=== PATIENT | female | born 1995 | race Caucasian/White ===

== ENCOUNTER 2021-05-18 05:21 | Emergency (ER) | payer MEDICAID, SELFPAY ==
--- NOTE | 2021-05-18 | US_ITS ---
WS: [id number] ULTRASOUND PELVIS TECHNIQUE: Transabdominal only CLINICAL INFORMATION: PAIN LMP: ? : No. COMPARISON: None. FINDINGS: Uterus Orientation: Anteverted. Size: 7.8 cm x 5.0 cm x 2.7 cm Masses: None. Cervix: Normal . Endometrium: Normal. Endometrium thickness: 0.5 cm. Adnexa: Simple right ovarian cyst measuring 3.0 x 3.2 x 2.6 cm Right ovary size: 4.7 cm x 4.6 cm x 2.8 cm. Right ovary volume: 31.9 ccm3 Left ovary size: 2.2 cm x 1.6 cm x 1.6 cm. Left ovary volume: 3.0 ccm3 Free fluid: None. Other findings: None. US/US pelvic complete* [id number] IMPRESSION: 1. Simple right ovarian cyst measuring 3.0 x 3.2 x 2.6 cm 2. Pelvic ultrasound otherwise normal
[2021-05-18 05:32] VITALS: BP 128/87; PULSE 99; RESP 20; TEMP 36.8; O2SAT 98; BMI 26.7
--- NOTE | 2021-05-18 06:21 | US_ITS ---
WS: [id number] ULTRASOUND RENAL TECHNIQUE: Ultrasound examination of both kidneys. CLINICAL INFORMATION: pelvic pain/renal transplant - donor kidney in RLQ COMPARISON: None. FINDINGS: Right lower quadrant renal transplant. Transplant measures 11.4 x 6.3 x 6.4 cm Renal cortex 1.7 cm Normal peak systolic velocities in the right renal artery.Normal arterial waveforms. Right renal vein is patent. Normal segmental resistive indices. No hydronephrosis. Renal transplant slightly complex cyst in the lower pole measuring 2.0 x 1.5 x 1.6 cm US/CV renal transplant [id number] IMPRESSION: Normal right lower quadrant renal transplant
--- NOTE | 2021-05-18 06:22 | XR_ITS ---
WS: [id number] Portable AP upright chest, 05/18/2021 Clinical Data: dyspnea/cough Comparison: None. Findings: No nodules, masses or effusions are seen. The heart is normal. The pulmonary vascularity is not increased. No pneumonia or pneumothorax is seen. XR/XR chest 1V portable [id number] Impression: Negative chest.
--- NOTE | 2021-05-18 06:29 | W.ED.NAVMDI ---
Documented by User: Sree Peck DO 05/24/21 06:23 HPI - Nausea/Vomiting/Diarrhea General: Chief complaint: Nausea/Vomiting/Diarrhea Stated complaint: Fever\ N\V Kidney Transplant 2001\Cough Time Seen by Provider: 05/18/21 05:51 History of Present Illness: HPI Narrative: 25-year-old female presents to the emergency room with complaints of left lower quadrant abdominal pain and fever and dysuria. She has had nausea and vomiting as well. She has had a cough she states her baseline nonproductive cough that she has had for years. 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 She was to have this done at [place] recently moved to this area she has not been following with anyone here she is still on immune suppression. MD elicited complaint: nausea, vomiting and abdominal pain Onset (ago): minute(s) Description of vomiting: watery Associated nausea: Yes Associated abdominal pain: Yes Location of pain: RLQ Pain consistency: constant Severity: moderate Quality: cramping Exacerbating factors: other (Urination) Relieving factors: none Associated symtoms: Reports bloating, cough, fatigue, fevers/chills, headache(s), anorexia, malaise, myalgias, nausea, short of breath and weakness; Denies altered mental status, anxiety, change in vision, chest pain, diaphoresis, decreased urine output, dizziness, dysuria, epistaxis, fecal incontinence, numbness, palpitations, rash, syncope, tenesmus or tinnitus Review of Systems Const: Reports: fatigue and malaise; Denies: diaphoresis Eyes: Denies: change in vision ENMT: Denies: tinnitus or epistaxis Card: Denies: chest pain, palpitations or syncope Resp: Denies: dyspnea, productive cough or non-productive cough GI: Reports: nausea and bloating; Denies: fecal incontinence : Denies: dysuria Skin/Breast: Denies: rash or pruritus Neuro: Reports: headache(s); Denies: dizziness Psych: Denies: anxiety Physical Exam Const: COMMON NORMALS: no acute distress EXAM LIMITATIONS: no altered mental status GENERAL APPEARANCE: cooperative and comfortable ORIENTATION/CONSCIOUSNESS: Yes awake, Yes oriented to person, Yes oriented to place and Yes oriented to time HENMT: COMMON NORMALS: normocephalic, atraumatic and hearing grossly normal bilaterally HEAD & SCALP: normocephalic and atraumatic Neck/C-Spine: COMMON NORMALS: no JVD Resp: COMMON NORMALS: normal respiratory effort, No retractions, No use of accessory muscles and clear to auscultation bilaterally AUSCULTATION: clear to auscultation bilaterally Cardio: COMMON NORMALS: no JVD, regular rate, regular rhythm and No murmurs present (Cardio) RATE: regular rate RHYTHM: regular rhythm GI: COMMON NORMALS: Soft to palpation and No hepatosplenomegaly present AUSCULTATION: Yes normoactive bowel sounds PALPATION: Yes Soft to palpation, No Tenderness to palpation present (GI), No Guarding due to palpation present (GI) and Yes No hepatosplenomegaly present Extremity: COMMON NORMALS: normal to inspection, capillary refill normal, no clubbing, cyanosis or edema, no calf tenderness and no pedal edema Neuro: SENSORIUM/ORIENTATION: Yes oriented to person, Yes oriented to place and Yes oriented to time Skin: COMMON NORMALS: no rashes or lesions noted GENERAL SKIN EXAM: no rashes or lesions noted Course Vital Signs: Vital signs: Vital Signs Temperature 98.2 F 05/18/21 05:32 Pulse Rate 99 05/18/21 05:32 Respiratory Rate 16 05/18/21 09:07 Blood Pressure 128/87 05/18/21 05:32 Pulse Oximetry 98 05/18/21 05:32 MDM - Nausea/Vomiting/Diarrhea MDM Narrative: Medical decision making narrative: Patient has significant leukocytosis evidence of pyelonephritis. In the setting of a renal transplant patient did not feel our facility is appropriate discussed Dr. Castanon he agrees. She should be somewhere where nephrology and transplant services are readily available. Will transfer [facility] they do not have any beds available. Have discussed with [facility] patient be transferred via private ambulance. Lab Data: Labs: Lab Results 05/18/21 05/18/21 05/18/21 06:40 06:40 06:45 WBC 27.7 10^3/uL H 10 ^3/uL (4.0-10.0) RBC 4.11 10^6/uL 10^6 /uL (4.1-5.3) Hgb 11.7 g/dL g/dL (11.5-15.3) Hct 35.5 % L % (37.0-47.0) MCV 86.4 fl fl (81-99) MCH 28.5 pg pg (28.0-34.0) MCHC 33.0 g/dL g/dL (30.0-36.0) RDW 14.0 % % (12.1-15.1) Plt Count 374 10^3/cmm 10^3 /cmm (130-400) MPV 10.9 fL H fL (7.4-10.4) Neut % (Auto) 90.8 % % Lymph % (Auto) 1.9 % % [place] % (Auto) 6.2 % % Eos % (Auto) 0.0 % % Baso % (Auto) 0.3 % % Neut # (Auto) 25.16 10^3/uL H 1 0^3/uL (1.8-7.7) Lymph # (Auto) 0.5 10^3/uL L 10^ 3/uL (0.8-4.8) [place] # (Auto) 1.7 10^3/uL H 10^ 3/uL (0.2-0.9) Eos # (Auto) 0.0 10^3/uL 10^3/ uL (0.0-0.8) Baso # (Auto) 0.1 10^3/uL 10^3/ uL (0.0-0.1) Nucleated RBC % (a uto) 0 % % Nucleated RBCs # 0.0 /100WBC /100W BC D-Dimer Sodium Potassium Chloride Carbon Dioxide Anion Gap BUN Creatinine GFR Calculation Glucose Calculated Osmolal ity Calcium Total Bilirubin AST ALT Alkaline Phosphata se Creatine Kinase C-Reactive Protein Total Protein Albumin Globulin Urine Color Urine Appearance Urine pH Ur Specific Gravit y Urine Protein Urine Glucose (UA) Urine Ketones Urine Blood Urine Nitrate Urine Bilirubin Urine Urobilinogen Ur Leukocyte Imna ase Urine RBC Urine WBC Ur Squamous Epith Cells Amorphous Sediment Urine Bacteria Nasal/Oral COVID-1 9 PCR Not detected SARS-CoV-2 Ag (Rap id) Negative (Negative) 05/18/21 05/18/21 05/18/21 06:45 06:45 08:40 WBC RBC Hgb Hct MCV MCH MCHC RDW Plt Count MPV Neut % (Auto) Lymph % (Auto) [place] % (Auto) Eos % (Auto) Baso % (Auto) Neut # (Auto) Lymph # (Auto) [place] # (Auto) Eos # (Auto) Baso # (Auto) Nucleated RBC % (a uto) Nucleated RBCs # D-Dimer 4.53 ug/mIFEU H u g/mIFEU (0-0.59) Sodium 134 mmol/L L mmol /L (136-145) Potassium 3.1 mmol/L L mmol /L (3.5-5.1) Chloride 96 mmol/L L mmol/ L (98-107) Carbon Dioxide 20 mmol/L L mmol/ L (22-29) Anion Gap 21.1 H (5-19) BUN 25 mg/dL H mg/dL (6-20) Creatinine 2.6 mg/dL H mg/dL (0.5-0.9) GFR Calculation 22.8 mL/min L mL/ min (90-130) Glucose 113 mg/dL mg/dL (65-115) Calculated Osmolal ity 283 mOsm/kg L mOs m/kg (285-295) Calcium 9.3 mg/dL mg/dL (8.5-10.5) Total Bilirubin 0.4 mg/dL mg/dL (0.15-1.2) AST 11 U/L U/L (0-32) ALT 7 U/L U/L (0-33) Alkaline Phosphata se 91 IU/L IU/L (35-105) Creatine Kinase 31 U/L U/L (26-192) C-Reactive Protein 118.0 mg/L H mg/L (0.0-4.9) Total Protein 7.3 g/dL g/dL (6.6-8.7) Albumin 4.4 g/dL g/dL (3.5-5.2) Globulin 2.9 g/dL g/dL (1.3-4.6) Urine Color Yellow (Yellow) Urine Appearance Cloudy (CLEAR) Urine pH 6.5 (5-7) Ur Specific Gravit y 1.005 (1.005-1.030) Urine Protein 3+ H (Negative) Urine Glucose (UA) Norm (Normal) Urine Ketones Negative (Negative) Urine Blood 3+ H (Negative) Urine Nitrate Negative (Negative) Urine Bilirubin Neg (Negative) Urine Urobilinogen Norm mg/dL mg/dL (Negative) Ur Leukocyte Iman ase 2+ H (Negative) Urine RBC 25-40 /hpf H /hpf (0-2) Urine WBC Too numerous to c nt /hpf H /hpf (0-5) Ur Squamous Epith Cells 5-10 /hpf H /hpf (0-5) Amorphous Sediment Not Reportable Urine Bacteria 2+ /hpf H /hpf (NONE) Nasal/Oral COVID-1 9 PCR SARS-CoV-2 Ag (Rap id) Discharge Plan Discharge Patient Disposition: Xfer Short-Term Hosp Clinical Impression: Pyelonephritis, Renal transplant, status post Patient Instructions: Opioid Safety Coding Level of Care Code ED Formulation Chemist for Chg Fwd Exam Comprehensive Documented by User: WAGNER Lau 05/18/21 08:17 HPI - Nausea/Vomiting/Diarrhea General: Chief complaint: Nausea/Vomiting/Diarrhea Stated complaint: Fever\ N\V Kidney Transplant 2001\Cough Time Seen by Provider: 05/18/21 05:51 Physical Exam : COMMON NORMALS: Yes normal external appearance, Yes normal appearance of the vagina and Yes normal appearance of the cervix SPECULUM EXAM - VAGINA: No Vaginal discharge present SPECULUM EXAM - CERVIX: No Cervical bleeding, No mucoid cervix and No Cervical tenderness present BIMANUAL EXAM - VAGINA & UTERUS: No cervical motion tenderness and No Cervical tenderness present BIMANUAL EXAM - ADNEXA, OTHER: Yes tender on the right Course Vital Signs: Vital signs: Vital Signs Temperature 98.2 F 05/18/21 05:32 Pulse Rate 99 05/18/21 05:32 Respiratory Rate 16 05/18/21 09:07 Blood Pressure 128/87 05/18/21 05:32 Pulse Oximetry 98 05/18/21 05:32 MDM - Nausea/Vomiting/Diarrhea Lab Data: Labs: Lab Results 05/18/21 05/18/21 05/18/21 06:40 06:40 06:45 WBC 27.7 10^3/uL H 10 ^3/uL (4.0-10.0) RBC 4.11 10^6/uL 10^6 /uL (4.1-5.3) Hgb 11.7 g/dL g/dL (11.5-15.3) Hct 35.5 % L % (37.0-47.0) MCV 86.4 fl fl (81-99) MCH 28.5 pg pg (28.0-34.0) MCHC 33.0 g/dL g/dL (30.0-36.0) RDW 14.0 % % (12.1-15.1) Plt Count 374 10^3/cmm 10^3 /cmm (130-400) MPV 10.9 fL H fL (7.4-10.4) Neut % (Auto) 90.8 % % Lymph % (Auto) 1.9 % % [place] % (Auto) 6.2 % % Eos % (Auto) 0.0 % % Baso % (Auto) 0.3 % % Neut # (Auto) 25.16 10^3/uL H 1 0^3/uL (1.8-7.7) Lymph # (Auto) 0.5 10^3/uL L 10^ 3/uL (0.8-4.8) [place] # (Auto) 1.7 10^3/uL H 10^ 3/uL (0.2-0.9) Eos # (Auto) 0.0 10^3/uL 10^3/ uL (0.0-0.8) Baso # (Auto) 0.1 10^3/uL 10^3/ uL (0.0-0.1) Nucleated RBC % (a uto) 0 % % Nucleated RBCs # 0.0 /100WBC /100W BC D-Dimer Sodium Potassium Chloride Carbon Dioxide Anion Gap BUN Creatinine GFR Calculation Glucose Calculated Osmolal ity Calcium Total Bilirubin AST ALT Alkaline Phosphata se Creatine Kinase C-Reactive Protein Total Protein Albumin Globulin Urine Color Urine Appearance Urine pH Ur Specific Gravit y Urine Protein Urine Glucose (UA) Urine Ketones Urine Blood Urine Nitrate Urine Bilirubin Urine Urobilinogen Ur Leukocyte Iman ase Urine RBC Urine WBC Ur Squamous Epith Cells Amorphous Sediment Urine Bacteria Nasal/Oral COVID-1 9 PCR Not detected SARS-CoV-2 Ag (Rap id) Negative (Negative) 05/18/21 05/18/21 05/18/21 06:45 06:45 08:40 WBC RBC Hgb Hct MCV MCH MCHC RDW Plt Count MPV Neut % (Auto) Lymph % (Auto) [place] % (Auto) Eos % (Auto) Baso % (Auto) Neut # (Auto) Lymph # (Auto) [place] # (Auto) Eos # (Auto) Baso # (Auto) Nucleated RBC % (a uto) Nucleated RBCs # D-Dimer 4.53 ug/mIFEU H u g/mIFEU (0-0.59) Sodium 134 mmol/L L mmol /L (136-145) Potassium 3.1 mmol/L L mmol /L (3.5-5.1) Chloride 96 mmol/L L mmol/ L (98-107) Carbon Dioxide 20 mmol/L L mmol/ L (22-29) Anion Gap 21.1 H (5-19) BUN 25 mg/dL H mg/dL (6-20) Creatinine 2.6 mg/dL H mg/dL (0.5-0.9) GFR Calculation 22.8 mL/min L mL/ min (90-130) Glucose 113 mg/dL mg/dL (65-115) Calculated Osmolal ity 283 mOsm/kg L mOs m/kg (285-295) Calcium 9.3 mg/dL mg/dL (8.5-10.5) Total Bilirubin 0.4 mg/dL mg/dL (0.15-1.2) AST 11 U/L U/L (0-32) ALT 7 U/L U/L (0-33) Alkaline Phosphata se 91 IU/L IU/L (35-105) Creatine Kinase 31 U/L U/L (26-192) C-Reactive Protein 118.0 mg/L H mg/L (0.0-4.9) Total Protein 7.3 g/dL g/dL (6.6-8.7) Albumin 4.4 g/dL g/dL (3.5-5.2) Globulin 2.9 g/dL g/dL (1.3-4.6) Urine Color Yellow (Yellow) Urine Appearance Cloudy (CLEAR) Urine pH 6.5 (5-7) Ur Specific Gravit y 1.005 (1.005-1.030) Urine Protein 3+ H (Negative) Urine Glucose (UA) Norm (Normal) Urine Ketones Negative (Negative) Urine Blood 3+ H (Negative) Urine Nitrate Negative (Negative) Urine Bilirubin Neg (Negative) Urine Urobilinogen Norm mg/dL mg/dL (Negative) Ur Leukocyte Iman ase 2+ H (Negative) Urine RBC 25-40 /hpf H /hpf (0-2) Urine WBC Too numerous to c nt /hpf H /hpf (0-5) Ur Squamous Epith Cells 5-10 /hpf H /hpf (0-5) Amorphous Sediment Not Reportable Urine Bacteria 2+ /hpf H /hpf (NONE) Nasal/Oral COVID-1 9 PCR SARS-CoV-2 Ag (Rap id) Discharge Plan Discharge Patient Disposition: Xfer Short-Term Hosp Clinical Impression: Pyelonephritis, Renal transplant, status post Patient Instructions: Opioid Safety Coding Level of Care Code ED Formulation Chemist for Rina Fwd Exam Comprehensive
[2021-05-18 07:13] LABS: Basophils # 0.1 10^3/uL (0.0-0.1); Basophils % 0.3 %; Hematocrit 35.5 % (37.0-47.0); Hemoglobin 11.7 g/dL (11.5-15.3); Lymphocytes # 0.5 10^3/uL (0.8-4.8); Lymphocytes % 1.9 %; Mean Corpuscular Hemoglobin 28.5 pg (28.0-34.0); Mean Corpuscular Volume 86.4 fl (81-99); Mean Platelet Volume 10.9 fL (7.4-10.4); Monocytes # 1.7 10^3/uL (0.2-0.9); Monocytes % 6.2 %; Neutrophils # 25.16 10^3/uL (1.8-7.7); Neutrophils % 90.8 %; Nucleated Red Blood Cells % 0 %; Platelet Count 374 10^3/cmm (130-400); Red Blood Count 4.11 10^6/uL (4.1-5.3); White Blood Count 27.7 10^3/uL (4.0-10.0)
[2021-05-18 07:24] LABS: Alanine Aminotransferase 7 U/L (0-33); Albumin Level 4.4 g/dL (3.5-5.2); Alkaline Phosphatase 91 IU/L (35-105); Anion Gap 21.1 (5-19); Aspartate Amino Transferase 11 U/L (0-32); Blood Urea Nitrogen 25 mg/dL (6-20); Calcium 9.3 mg/dL (8.5-10.5); Carbon Dioxide 20 mmol/L (22-29); Chloride 96 mmol/L (98-107); Creatine Phosphokinase 31 U/L (26-192); Globulin 2.9 g/dL (1.3-4.6); Glomerular Filtration Rate 22.8 mL/min (90-130); Glucose 113 mg/dL (65-115); Osmolality Calculated 283 mOsm/kg (285-295); Potassium 3.1 mmol/L (3.5-5.1); Sodium 134 mmol/L (136-145); Total Bilirubin 0.4 mg/dL (0.15-1.2); Total Protein 7.3 g/dL (6.6-8.7)
[2021-05-18 07:28] LABS: D Dimer 4.53 ug/mIFEU (0-0.59)
--- NOTE | 2021-05-18 08:36 | PC.NURSE ---
This RN brought pt a bedside commode to give urine sample, pt used restroom in [place] and this RN unable to collect urine sample, will update Dr. Peck
[2021-05-18 08:47] LABS: SARS Covid-2 Antigen Negative (Negative)
[2021-05-18 09:07] VITALS: RESP 16
[2021-05-18] MEDS: morphine 4 mg/mL SDV 1 mL IVP (09:07)
[2021-05-18] MEDS: ondansetron 2 mg/ML SDV 2 mL 4 MG IVP (09:08)
[2021-05-18] MEDS: sodium chloride 0.9% 1,000 ML 999 ML IV (09:08)
[2021-05-18 09:20] LABS: Protein Urine 3+ (Negative); Specific Gravity, Urine 1.005 (1.005-1.030); Urine Color Yellow (Yellow); pH Urine 6.5 (5-7)
[2021-05-18 09:21] LABS: Add Urine Microscopic? YES; Bilirubin Urine Neg (Negative); Blood Urine 3+ (Negative); Glucose Urine UA Norm (Normal); Ketones Urine Negative (Negative); Leukocyte Esterase Urine 2+ (Negative); Nitrate Urine Negative (Negative); Urine Appearance Cloudy (CLEAR); Urobilinogen Urine Norm (Negative)
[2021-05-18 09:24] LABS: RBC Urine 25-40 /hpf (0-2); WBC Urine TOO NUMEROUS TO CNT /hpf (0-5)
[2021-05-18 09:25] LABS: Add Urine Culture? Yes; Bacteria Urine 2+ /hpf
--- NOTE | 2021-05-18 12:29 | PC.NURSE ---
Report called to LETTY Rosales, report given to Justin Valdez RN.
[2021-05-18 14:54] LABS: Coronavirus Test Green County Not Detected
--- NOTE | 2021-05-19 12:16 | PC.NURSE ---
This RN received call for 3 positive blood cultures, all for Gram negative rods. This RN reported to Karly Balderrama RN at .
== END 2021-05-18 13:45 | disposition short-term general hospital (02) ==
PROVIDERS: Emergency Provider Family Medicine
DX: N12 Tubulo-interstitial nephritis, not specified as acute or chronic (principal); Z94.0 Kidney transplant status
CPT/HCPCS: 36415; 71045; 76776; 76856; 80053; 81001; 82550; 85025; 85378; 86140; 87040; 87077; 87086; 87186; 87205; 87210; 87426; 87491; 87591; 87635; 87661; 96374; 96375; 99285; 99291; J2270; J2405; J7030